=== PATIENT | male | born 2000 | race Caucasian/White ===

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

== ENCOUNTER 2019-01-24 21:10 | Emergency (ER) | payer OTHER ==
[~2019-01-24] VITALS: Ht 170.2 cm; Wt 68.0 kg
[2019-01-24 21:32] LABS: BASO % 0 % (0-3); EOS # 0.1 x10^3/uL (0.0-0.7); EOS % 1 % (0-3); HEMATOCRIT 48.1 % (39.0-53.0); HEMOGLOBIN 16.9 g/dL (13.0-17.5); LYMPH % 31 % (24-48); MEAN CORPUSCULAR HEMOGLOBIN 30 pg (25-35); MEAN CORPUSCULAR HGB CONC 35 g/dL (31-37); MEAN CORPUSCULAR VOLUME 85 fL (79-100); MONO # 1.1 x10^3/uL (0.0-1.1); MONO % 8 % (0-9); NEUT # 7.9 x10^3uL (1.8-7.7); NEUT % 60 % (31-73); PLATELET COUNT 264 x10^3/uL (140-400); RED BLOOD COUNT 5.66 x10^6/uL (4.30-5.70); RED CELL DISTRIBUTION WIDTH 12.9 % (11.5-14.5); WHITE BLOOD COUNT 13.1 x10^3/uL (4.0-11.0)
[2019-01-24 21:43] LABS: CALCIUM 9.1 mg/dL (8.5-10.1); GFR 95.3; POTASSIUM 3.8 mmol/L (3.5-5.1)
[2019-01-24 21:47] LABS: BARBITURATES NEG (NEG); BENZODIAZEPINES POS (NEG); CANNABINOIDS POS (NEG); COCAINE NEG (NEG); METHADONE NEG (NEG); OPIATES NEG (NEG); PHENCYCLIDINE NEG (NEG)
[2019-01-24 21:48] LABS: AMPHETAMINE/METHAMPHETAMINE NEG (NEG)
[2019-01-24 21:49] LABS: ALBUMIN 4.7 g/dL (3.4-5.0); ALBUMIN/GLOBULIN RATIO 1.2 (1.0-1.7); TOTAL BILIRUBIN 0.6 mg/dL (0.2-1.0); TOTAL PROTEIN 8.5 g/dL (6.4-8.2)
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
[2019-01-25 02:25] VITALS: BP 123/64
--- NOTE | 2019-01-25 15:32 | EKG ---
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
== END 2019-01-25 02:58 | disposition short-term general hospital (02) ==
LOC: ER 21:10
DX: F19.10 Other psychoactive substance abuse, uncomplicated (principal); R45.851 Suicidal ideations; F32.9 Major depressive disorder, single episode, unspecified; F10.20 Alcohol dependence, uncomplicated; Y90.9 Presence of alcohol in blood, level not specified
CPT/HCPCS: 36415; 80053; 80307; 85025; 93005; 99285; G0480

== ENCOUNTER 2021-06-11 11:51 | Emergency (ER) | payer SELFPAY ==
[~2021-06-11] VITALS: Ht 175.3 cm; Wt 60.0 kg
[2021-06-11 12:29] VITALS: BP 128/71
--- NOTE | 2021-06-11 12:40 | RAD ---
EXAM: Chest, single view. HISTORY: Covid 19. COMPARISON: 11/23/2016 FINDINGS: A frontal view of the chest is obtained. There is no infiltrate, pleural effusion or pneumo thorax. The heart is normal in size. IMPRESSION: No acute pulmonary finding. Electronically signed by: Kecia Lombardi MD (06/11/2021 12:38 PM) [id number]
--- NOTE | 2021-06-11 12:54 | PHYS DOC ---
Past Medical History Past Medical History: Depression Additional Past Medical Histor: COVID-MAY 2021 Past Surgical History: Other Additional Past Surgical Histo: ATTACHED FRENULUM BABY Smoking Status: Never Smoker Alcohol Use: Occasionally Drug Use: Benzodiazepine, Marijuana General Adult EDM: Chief Complaint: SHORTNESS OF BREATH HPI: HPI: Patient is a 20 year old male without pertinent past medical history who presents with symptoms of sinus congestion and some mild increase in shortness of breath. He was diagnosed with Covid on 05/27 and stayed out of work for 10 days. After the 10 days he did return to work on 06/08, but did still have some residual cough and shortness of breath. Has not had fevers since very early in his illness. Over the past 2 days has had increasing nasal congestion and green/yellow mucus production. Denies any significant increase in his shortness of breath or recurrent fever/chills. Denies chest pain. No lower extremity edema, redness or pain. Denies recent surgery, prolonged imm obilization, or history of VTE. Review of Systems: Review of Systems: Constitutional: Denies fever or chills. [] Eyes: Denies change in visual acuity. [] HENT: Reports nasal congestion and sore throat Respiratory: Reports cough and shortness of breath Cardiovascular: Denies chest pain or edema. [] GI: Denies abdominal pain, nausea, vomiting, bloody stools or diarrhea. [] : Denies dysuria. [] Musculoskeletal: Denies back pain or joint pain. [] Integument: Denies rash. [] Neurologic: Denies headache, focal weakness or sensory changes. [] Endocrine: Denies polyuria or polydipsia. [] Lymphatic: Denies swollen glands. [] Psychiatric: Denies depression or anxiety. [] Heart Score: C/O Chest Pain: No Risk Factors: Risk Factors: DM, Current or recent (<one month) smoker, HTN, HLP, family history of CAD, obesity. Risk Scores: Score 0 - 3: 2.5% MACE over next 6 weeks - Discharge Home Score 4 - 6: 20.3% MACE over next 6 weeks - Admit for Clinical Observation Score 7 - 10: 72.7% MACE over next 6 weeks - Early Invasive Strategies Allergies: Allergies: Allergies Coded Allergies Type Severity Reaction Last Updated Verified No Known Drug Allergies 4/22/17 No Physical Exam: PE: Constitutional: Well developed, well nourished, no acute distress, non-toxic ap pearance. [] HENT: Normocephalic, atraumatic, thick mucus in bilateral nares. No significant maxillary tenderness to palpation. Eyes: PERRLA, EOMI, conjunctiva normal, no discharge. [] Neck: Normal range of motion, no tenderness, supple, no stridor. [] Cardiovascular:Heart rate regular rhythm, no murmur [] Lungs & Thorax: Bilateral breath sounds clear to auscultation [] Abdomen: Bowel sounds normal, soft, no tenderness, no masses, no pulsatile masses. [] Skin: Warm, dry, no erythema, no rash. [] Back: No tenderness, no CVA tenderness. [] Extremities: No tenderness, no cyanosis, no clubbing, ROM intact, no edema. [] Neurologic: Alert and oriented X 3, normal motor function, normal sensory function, no focal deficits noted. [] Psychologic: Affect normal, judgement normal, mood normal. [] Current Patient Data: Vital Signs: Vital Signs Date Time Temp Pulse Resp B/P (MAP) Pulse Ox O2 Delivery O2 Flow Rate FiO2 06/11/21 11:57 97.9 70 20 134/77 (96) 95 Room Air 97.9 EKG: EKG: [] Radiology/Procedures: Radiology/Procedures: [] Impression: [facility] [address] [place], [place] [id number] IMAGING REPORT Signed PATIENT: BERLIN MARINO ACCOUNT: [id number] : 2000 LOCATION: ER AGE: 20 SEX: M EXAM STATUS: REG ER ORD. PHYSICIAN: JULIANN LIVINGSTON MD REASON: covid + PROCEDURE: CHEST AP ONLY EXAM: Chest, single view. HISTORY: Covid 19. COMPARISON: 11/23/2016 FINDINGS: A frontal view of the chest is obtained. There is no infiltrate, pleural effusion or pneumothorax. The heart is normal in size. IMPRESSION: No acute pulmonary finding. Electronically signed by: Kecia Knowles MD (06/11/2021 12:38 PM) [id number] DICTATED and SIGNED BY: KECIA KNOWLES MD DATE: 06/11/21 [id number] Course & Med Decision Making: Course & Med Decision Making Pertinent Labs and Imaging studies reviewed. (See chart for details) Patient a 20-year-old male who presents with increasing nasal congestion and purulent phlegm production after testing positive for Covid on 05/27. On arrival is afebrile, hemodynamically stable. Satting 100% on room air. Chest x-ray is clear. Does not meet criteria for diagnosis of bacterial sinusitis, so will defer on any further antibiotics. He denies any increasing shortness of breath (just increasing difficulty breathing through his nose), chest pain, or leg swelling to suggest PE. PERC rule negative. Will not work-up PE. Feel he is safe for discharge with outpatient follow-up for persistent sinusitis symptoms. Dragon Disclaimer: Dragon Disclaimer: This electronic medical record was generated, in whole or in part, using a voice recognition dictation system. Departure Departure Impression: Primary Impression: Sinusitis Additional Impression: COVID-19 Disposition: 01 HOME / SELF CARE / HOMELESS Condition: STABLE Referrals: JESSICA TARANGO MD (PCP) Additional Instructions: Your chest x-ray was clear. Please follow with your primary care doctor if your nasal symptoms persist for 10 days, your pain in the nasal area worsens, or if you have return of high fevers. Return to the emergency department if you have worsening shortness of breath (not just difficulty breathing through your nose), new onset chest pain, or lower leg swelling/redness/pain. JULIANN LIVINGSTON MD Jun 11, 2021 12:54
== END 2021-06-11 13:15 | disposition home or self-care (01) ==
LOC: ER 11:51
DX: U07.1 COVID-19 (principal); J32.9 Chronic sinusitis, unspecified
CPT/HCPCS: 71045; 99283